=== PATIENT | male | born 1935 | race Hispanic/Latino ===

== ENCOUNTER 2018-03-04 22:51 | Inpatient (IN) | payer MEDICARE ==
[~2018-03-04] VITALS: Ht 157.5 cm; Wt 48.4 kg
[2018-03-04] MEDS ORDERED: SODIUM CHLORIDE 0.9% 500ML 500 ML IV ONE (23:34)
[2018-03-04] MEDS ORDERED: ONDANSETRON HCL 4 MG/2 ML VIAL ONE (23:34)
[2018-03-04 23:45] LABS: BASOPHILS % (AUTO) 0.4 % (0.0-5.0); EOSINOPHILS % (AUTO) 0.2 % (0.0-8.0); HEMATOCRIT 39.4 % (42-54); LYMPHOCYTES % (AUTO) 7.1 % (21.0-51.0); MEAN CORPUSCULAR HEMOGLOBIN 29.7 pg (27.0-33.0); MEAN CORPUSCULAR HGB CONC 34.9 g/dL (32.0-36.0); MEAN CORPUSCULAR VOLUME 85.1 fL (79-99); MONOCYTES % (AUTO) 24.9 % (3.0-13.0); NEUTROPHILS % (AUTO) 67.4 % (40.0-77.0); NUCLEATED RED BLOOD CELLS 0.1 % (0.0-0.19); PLATELET COUNT (AUTO) 179 K/uL (130-400); RED BLOOD CELL COUNT(AUTO) 4.63 MIL/uL (4.50-6.20); RED CELL DISTRIBUTION WIDTH 16.8 % (11.0-15.5); WHITE BLOOD COUNT (AUTO) 5.1 K/uL (4.8-10.8)
[2018-03-04 23:58] LABS: ALBUMIN 3.4 g/dL (3.5-5.0); BILIRUBIN,TOTAL 0.3 mg/dL (0.2-1.0); CREATININE 4.9 mg/dL (0.5-1.5); TOTAL PROTEIN, SERUM 7.1 g/dL (6.0-8.3)
[2018-03-05 00:05] LABS: POTASSIUM 2.7 mmol/L (3.5-5.1)
[2018-03-05] MEDS ORDERED: POTASSIUM BICARB/CIT AC 25 MEQ TABLET.EFF ONE (01:01)
[2018-03-05] MEDS ORDERED: SODIUM CHLORIDE 0.9% 1000ML 1,000 ML IV ONE ×3 (01:02→10:52)
[2018-03-05] MEDS ORDERED: ZOSYN 3.375GM+NS 50ML 50 ML IV ONE (01:02)
[2018-03-05 03:14] LABS: BILIRUBIN,URINE Negative (NEGATIVE); COLOR,URINE Dark Yellow (YELLOW); GLUCOSE, URINE (UA) Negative (NEGATIVE); KETONES,URINE Negative (NEGATIVE); LEUKOCYTE ESTERASE ,URINE Trace (NEGATIVE); NITRATE,URINE Negative (NEGATIVE); OCCULT BLOOD,URINE Trace (NEGATIVE); PROTEIN,URINE 300 (NEGATIVE)
[2018-03-05 03:18] LABS: APPEARANCE,URINE SLIGHTLY CLOUDY (CLEAR)
[2018-03-05 03:20] LABS: BACTERIA,URINE None Seen /HPF (None Seen); RBC,URINE None Seen /HPF (0-1); SQUAMOUS EPITHELIAL CELL,UR Rare /HPF (0-2); WBC,URINE 0-1 /HPF (0-1)
[2018-03-05] MEDS ORDERED: METRONIDAZOLE 500MG/100ML BAG 100 ML ONE (06:27)
[2018-03-05] MEDS ORDERED: LIDOCAINE HCL-MPF 1% 2ML VIAL IJ PRN (06:30)
[2018-03-05] MEDS ORDERED: LEVOFLOXACIN 500 MG/D5W 100 ML 100 ML IV SCH ×2 (06:30→11:00)
[2018-03-05] MEDS ORDERED: POTASSIUM CHLORIDE 10% ELIXIR 20 MEQ/15 ML UDCUP PO PRN (06:30)
[2018-03-05] MEDS ORDERED: CIPR-245 PO (06:56)
[2018-03-05] MEDS ORDERED: CLOP75TA32 PO (06:56)
[2018-03-05] MEDS ORDERED: METR500T4 PO (06:56)
[2018-03-05] MEDS ORDERED: AMLO10TA2 PO (06:56)
[2018-03-05] MEDS ORDERED: LOSA100T29 PO (06:56)
[2018-03-05] MEDS ORDERED: CILO100T PO (06:56)
[2018-03-05] MEDS ORDERED: PRAV20TA4 PO (06:56)
[2018-03-05] MEDS ORDERED: ENOXAPARIN SODIUM 30 MG/0.3 ML SQ ONE (07:46)
[2018-03-05] MEDS: METRONIDAZOLE 500MG/100ML BAG 100 ML IVPB SCH ×3 (08:00→20:05)
[2018-03-05] MEDS: PANTOPRAZOLE SODIUM 40 MG TABLET.DR PO SCH (09:00)
[2018-03-05] MEDS: ENOXAPARIN SODIUM 30 MG/0.3 ML SQ SCH (09:00)
[2018-03-05] MEDS ORDERED: LEVOFLOXACIN 500 MG/D5W 100 ML 100 ML IV ONE (10:53)
[2018-03-05 11:35] VITALS: BP 142/78
[2018-03-05] MEDS: SODIUM CHLORIDE 0.9% 1000ML 1,000 ML IV SCH ×3 (11:39→20:05)
[2018-03-05] MEDS: POTASSIUM CHLORIDE 20MEQ/100ML 100 ML IV PRN ×2 (12:03→17:22)
[2018-03-05] MEDS: POTASSIUM CHLORIDE 20 MEQ ERTAB PO PRN ×4 (12:03→21:56)
[2018-03-05 12:30] LABS: CHLORIDE,URINE RANDOM 23 mmol/L (110-250); POTASSIUM,URINE RANDOM 38 mmol/L (25-125); SODIUM,URINE RANDOM 16 mmol/l (40-220)
[2018-03-05 12:32] LABS: HEMATOCRIT 33.8 % (42-54); MEAN CORPUSCULAR HEMOGLOBIN 29.6 pg (27.0-33.0); MEAN CORPUSCULAR HGB CONC 35.1 g/dL (32.0-36.0); MEAN CORPUSCULAR VOLUME 84.4 fL (79-99); PLATELET COUNT (AUTO) 147 K/uL (130-400); RED BLOOD CELL COUNT(AUTO) 4.01 MIL/uL (4.50-6.20); RED CELL DISTRIBUTION WIDTH 16.9 % (11.0-15.5); WHITE BLOOD COUNT (AUTO) 3.4 K/uL (4.8-10.8)
[2018-03-05 13:02] LABS: POTASSIUM 2.3 mmol/L (3.5-5.1)
[2018-03-05] MEDS ORDERED: DIPHENOXYLATE HCL/ATROPINE 2.5/0.025 MG TAB PO SCH (15:00)
[2018-03-05 16:00] VITALS: BP 125/55
[2018-03-05] MEDS ORDERED: DIPHENOXYLATE HCL/ATROPINE 2.5/0.025 MG TAB PO PRN (16:00)
[2018-03-05 20:20] VITALS: BP 120/61
[2018-03-06 00:20] VITALS: BP 124/53
[2018-03-06] MEDS: METRONIDAZOLE 500MG/100ML BAG 100 ML IVPB SCH ×4 (01:41→19:36)
[2018-03-06] MEDS: SODIUM CHLORIDE 0.9% 1000ML 1,000 ML IV SCH ×3 (02:01→19:47)
[2018-03-06 04:20] VITALS: BP 137/65
[2018-03-06 04:44] LABS: POTASSIUM 3.2 mmol/L (3.5-5.1)
[2018-03-06] MEDS: POTASSIUM CHLORIDE 20 MEQ ERTAB PO PRN ×2 (07:11→16:51)
[2018-03-06 08:28] VITALS: BP 153/60
[2018-03-06] MEDS: PANTOPRAZOLE SODIUM 40 MG TABLET.DR PO SCH (09:19)
[2018-03-06] MEDS: ENOXAPARIN SODIUM 30 MG/0.3 ML SQ SCH (09:20)
[2018-03-06 11:40] VITALS: BP 136/61
[2018-03-06 16:24] VITALS: BP 129/58
[2018-03-06 20:32] VITALS: BP 155/66
[2018-03-07 00:32] VITALS: BP 171/71
[2018-03-07] MEDS: METRONIDAZOLE 500MG/100ML BAG 100 ML IVPB SCH ×3 (02:31→15:24)
[2018-03-07 04:32] VITALS: BP 146/54
[2018-03-07 04:54] LABS: BASOPHILS % (AUTO) 0.8 % (0.0-5.0); EOSINOPHILS % (AUTO) 4.6 % (0.0-8.0); HEMATOCRIT 28.2 % (42-54); LYMPHOCYTES % (AUTO) 20.7 % (21.0-51.0); MEAN CORPUSCULAR HGB CONC 35.6 g/dL (32.0-36.0); MEAN CORPUSCULAR VOLUME 84.3 fL (79-99); MONOCYTES % (AUTO) 25.4 % (3.0-13.0); NEUTROPHILS % (AUTO) 48.5 % (40.0-77.0); PLATELET COUNT (AUTO) 152 K/uL (130-400); RED BLOOD CELL COUNT(AUTO) 3.35 MIL/uL (4.50-6.20); RED CELL DISTRIBUTION WIDTH 17.1 % (11.0-15.5); WHITE BLOOD COUNT (AUTO) 3.3 K/uL (4.8-10.8)
[2018-03-07 05:01] LABS: CREATININE 1.9 mg/dL (0.5-1.5); MAGNESIUM 1.6 mg/dL (1.80-2.40); PHOSPHORUS 2.1 mg/dL (2.5-4.9); POTASSIUM 3.3 mmol/L (3.5-5.1)
[2018-03-07] MEDS: POTASSIUM CHLORIDE 20 MEQ ERTAB PO PRN (05:33)
[2018-03-07 08:21] VITALS: BP 154/97
[2018-03-07] MEDS ORDERED: LEVOFLOXACIN 250 MG/D5W 50ML 50 ML IVPB SCH (09:00)
[2018-03-07] MEDS: PANTOPRAZOLE SODIUM 40 MG TABLET.DR PO SCH (09:34)
[2018-03-07] MEDS: ENOXAPARIN SODIUM 30 MG/0.3 ML SQ SCH (09:39)
[2018-03-07] MEDS ORDERED: AMLODIPINE BESYLATE 5 MG TAB PO SCH (11:45)
[2018-03-07] MEDS ORDERED: MAGNESIUM 2GM PREMIX 50ML 50 ML IV SCH (12:00)
[2018-03-07 12:31] VITALS: BP 161/58
[2018-03-07 16:46] VITALS: BP 156/91
== END 2018-03-07 18:40 | disposition home or self-care (01) | DRG 683 ==
LOC: EDH 22:51 → OBSVTOIN 03-05 06:00 → EDHIP 03-05 06:00 → 4CH 03-05 11:01
PROVIDERS: ADMIT Internal Medicine; ATTEND Internal Medicine
DX: N17.9 Acute kidney failure, unspecified (principal); E87.2 Acidosis; E78.5 Hyperlipidemia, unspecified; E86.0 Dehydration; E86.1 Hypovolemia; E87.6 Hypokalemia; H54.61 Unqualified visual loss, right eye, normal vision left eye; I10 Essential (primary) hypertension; J44.9 Chronic obstructive pulmonary disease, unspecified; R91.1 Solitary pulmonary nodule; F17.210 Nicotine dependence, cigarettes, uncomplicated; R19.7 Diarrhea, unspecified; H54.40 Blindness, one eye, unspecified eye; A08.4 Viral intestinal infection, unspecified; Z86.718 Personal history of other venous thrombosis and embolism
CPT/HCPCS: 36415; 71045; 74176; 76770; 80048; 80051; 80053; 81001; 83605; 83690; 83735; 84100; 84484; 85025; 85027; 87040; 87324; 93005; 99291; J1650; J1956; J2405; J2543; J3475; J3480; J3490; J7030; J7040

== ENCOUNTER → 2018-09-27 | Outpatient (CLI) | payer MEDICARE ==
[~2018-09-27] MED LIST: AMLO10TA7 PO; CILO100T PO; CLOP75TA32 PO; PRAV20TA4 PO
== END | disposition home or self-care (01) ==
LOC: RAH 16:26
PROVIDERS: ATTEND Family Medicine
DX: M47.812 Spondylosis without myelopathy or radiculopathy, cervical region (principal)
CPT/HCPCS: 72040

== ENCOUNTER 2018-09-29 13:11 | Emergency (ER) | payer MEDICARE ==
[2018-09-29] MEDS ORDERED: KETOROLAC TROMETHAMINE 30MG/ML ONE (14:02)
[2018-09-29] MEDS ORDERED: HYDROCODONE/ACETAMINOPHEN 5/325 MG TAB ONE (14:02)
== END 2018-09-29 15:12 | disposition home or self-care (01) ==
LOC: EDH 13:11
DX: S13.8XXA Sprain of joints and ligaments of other parts of neck, initial encounter (principal); E78.5 Hyperlipidemia, unspecified; I10 Essential (primary) hypertension; Z86.718 Personal history of other venous thrombosis and embolism; X58.XXXA Exposure to other specified factors, initial encounter; Y93.89 Activity, other specified; Y92.89 Other specified places as the place of occurrence of the external cause; Y99.8 Other external cause status
CPT/HCPCS: 72040; 96372; 99283; J1885

== ENCOUNTER → 2018-10-11 | Outpatient (CLI) | payer MEDICARE | END | disposition home or self-care (01) | LOC: RAH 15:47 | PROVIDERS: ATTEND Family Medicine | DX: J98.11 Atelectasis (principal) | CPT/HCPCS: 71045 ==

== ENCOUNTER 2018-11-29 03:29 | Observation (INO) | payer MEDICARE ==
[~2018-11-29] VITALS: Ht 157.5 cm; Wt 51.6 kg
[2018-11-29 04:01] LABS: BASOPHILS % (AUTO) 0.6 % (0.0-5.0); EOSINOPHILS % (AUTO) 0.5 % (0.0-8.0); HEMATOCRIT 34.5 % (42-54); LYMPHOCYTES % (AUTO) 12.9 % (21.0-51.0); MEAN CORPUSCULAR HEMOGLOBIN 29.1 pg (27.0-33.0); MEAN CORPUSCULAR VOLUME 85.5 fL (79-99); MONOCYTES % (AUTO) 24.5 % (3.0-13.0); NEUTROPHILS % (AUTO) 61.5 % (40.0-77.0); PLATELET COUNT (AUTO) 145 K/uL (130-400); RED BLOOD CELL COUNT(AUTO) 4.03 MIL/uL (4.50-6.20); RED CELL DISTRIBUTION WIDTH 18.1 % (11.0-15.5); WHITE BLOOD COUNT (AUTO) 4.3 K/uL (4.8-10.8)
[2018-11-29] MEDS ORDERED: ACETAMINOPHEN EXTRA STRENGTH 500 MG TABLET ONE (04:04)
[2018-11-29 04:11] LABS: CREATININE 1.6 mg/dL (0.5-1.5)
[2018-11-29 04:15] LABS: ALBUMIN 2.8 g/dL (3.5-5.0); BILIRUBIN,TOTAL 0.3 mg/dL (0.2-1.0); TOTAL PROTEIN, SERUM 6.8 g/dL (6.0-8.3)
[2018-11-29 04:19] LABS: APPEARANCE,URINE Clear (CLEAR); BILIRUBIN,URINE Negative (NEGATIVE); COLOR,URINE Yellow (YELLOW); GLUCOSE, URINE (UA) Negative (NEGATIVE); KETONES,URINE Negative (NEGATIVE); LEUKOCYTE ESTERASE ,URINE Negative (NEGATIVE); NITRATE,URINE Negative (NEGATIVE); OCCULT BLOOD,URINE Moderate (NEGATIVE); PROTEIN,URINE 300 (NEGATIVE)
[2018-11-29 04:26] LABS: BACTERIA,URINE Rare /HPF (None Seen); SQUAMOUS EPITHELIAL CELL,UR 0-2 /HPF (0-2); WBC,URINE 0-1 /HPF (0-1)
[2018-11-29] MEDS ORDERED: OSELTAMIVIR PHOSPHATE 75 MG CAP ONE (05:05)
[2018-11-29 05:09] LABS: INR 0.98 (0.85-1.15); PARTIAL THROMBOPLASTIN TIME 34.3 SEC (26.3-35.5); PROTHROMBIN TIME 10.3 SEC (9.6-11.6)
[2018-11-29 05:22] LABS: CREATINE KINASE, TOTAL 112 U/L (21-232); MYOGLOBIN 107 ng/mL (10-92); TROPONIN I < 0.04 ng/mL (0.00-0.06)
[2018-11-29] MEDS ORDERED: IPRATROPIUM/ALBUTEROL SULFATE 3 ML SOLUTION IH ONE ×2 (06:32→10:25)
[2018-11-29] MEDS: METHYLPREDNISOLONE SOD SUCC 40MG/ML 1ML IVP SCH ×2 (07:30→22:35)
[2018-11-29] MEDS ORDERED: ACETAMINOPHEN 325 MG TAB PO PRN (07:30)
[2018-11-29] MEDS ORDERED: ONDANSETRON HCL 4 MG/2 ML VIAL IVP PRN (07:30)
[2018-11-29] MEDS ORDERED: HYDRALAZINE HCL 20 MG/ML VIAL IV PRN (07:30)
[2018-11-29] MEDS ORDERED: METHYLPREDNISOLONE SOD SUCC 125MG/2ML VIAL ONE (08:43)
[2018-11-29] MEDS: OSELTAMIVIR PHOSPHATE 75 MG CAP PO SCH ×2 (09:00→22:35)
[2018-11-29] MEDS: IPRATROPIUM/ALBUTEROL SULFATE 3 ML SOLUTION IH SCH ×3 (10:53→23:50)
[2018-11-29] MEDS ORDERED: HYDRALAZINE HCL 20 MG/ML VIAL ONE (16:48)
[2018-11-29] MEDS ORDERED: CLON.1 PO (20:35)
[2018-11-29] MEDS ORDERED: LOSA100T58 PO (20:35)
[2018-11-29] MEDS ORDERED: LEVO25TA54 PO (20:40)
[2018-11-29] MEDS ORDERED: LISI-617 PO (20:40)
[2018-11-29] MEDS ORDERED: CARV25TA PO (20:40)
[2018-11-29] MEDS ORDERED: CARB10DR2 OP (20:44)
[2018-11-29] MEDS ORDERED: FLUT1BLS3 IH (20:44)
[2018-11-29 21:16] VITALS: BP 152/67
[2018-11-29] MEDS: GUAIFENESIN SUGAR-FREE 100 MG/5 ML UDCUP PO PRN (23:00)
[2018-11-30] VITALS (7 sets, daily range): BP systolic 134–159; BP diastolic 50–76
[2018-11-30] MEDS: METHYLPREDNISOLONE SOD SUCC 40MG/ML 1ML IVP SCH ×2 (06:09→20:08)
[2018-11-30] MEDS: IPRATROPIUM/ALBUTEROL SULFATE 3 ML SOLUTION IH SCH ×4 (06:22→23:21)
--- NOTE | 2018-11-30 08:00 | NUR ---
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 PT IS ON ROOM AIR, FAMILY AT THE BEDSIDE, REVIEW FALL RISK AND CALL LIGHT, IN REACH
[2018-11-30] MEDS ORDERED: COMPOUND PO MISCELLANEOUS 1 EACH MISC MISC PRN (08:15)
[2018-11-30] MEDS ORDERED: ARTIFICAL TEARS SOL 15 ML OP PRN (08:15)
[2018-11-30] MEDS ORDERED: OSELTAMIVIR SUSP 15 MG/ML (6 CAPS/29ML) PO SCH ×2 (09:00)
[2018-11-30] MEDS: TRELEGY ELLIPTA IH SCH ×2 (09:00→20:12)
[2018-11-30] MEDS: LISINOPRIL 5 MG TABLET PO SCH (09:35)
[2018-11-30] MEDS: CLOPIDOGREL BISULFATE 75 MG TAB PO SCH (09:35)
[2018-11-30] MEDS: AMLODIPINE BESYLATE 5 MG TAB PO SCH (09:36)
[2018-11-30] MEDS: LOSARTAN 100 MG TABLET PO SCH (09:36)
[2018-11-30] MEDS: ATORVASTATIN CALCIUM 10 MG TABLET PO SCH (09:36)
[2018-11-30] MEDS: LEVOTHYROXINE 25 MCG TABLET PO SCH (09:37)
[2018-11-30] MEDS: CLONIDINE HCL 0.1 MG TABLET PO SCH ×2 (09:37→20:10)
[2018-11-30] MEDS: CARVEDILOL 25 MG TABLET PO SCH ×2 (09:38→20:09)
[2018-11-30] MEDS ORDERED: OSELTAMIVIR PHOSPHATE 75 MG CAP ONE (09:49)
[2018-11-30] MEDS: CEFTRIAXONE SODIUM 2 GM VIAL IVP SCH (09:51)
--- NOTE | 2018-11-30 16:13 | NUR ---
BLOOD SUGAR OF 264, AT 1130 . MONITOR . FOR THIS TIME IS A 139, PT HAS NO COVERAGE SLIDING SCALE ORD. WIIL DIRECT. MONITORING TO OF BLOOD SUGAR OUTCOME, ,
--- NOTE | 2018-11-30 17:37 | NUR ---
DESHAWN NOTES- IA MET W PT AND SPOUSE, MALAYSIAN SPKING, PT W POSS VISION/HEARING PROBLEMS PER PRIMARY RN. LIVES W [employer], NO DME, SON TO PROVIDE TRANSPORT HOME, [employer] 20+ HR WK, DCP HOME Addendum: 11/30/18 at 1740 by SHANNON RUTHERFORD RN CM Amended: Links added.
[2018-11-30] MEDS: GUAIFENESIN SUGAR-FREE 100 MG/5 ML UDCUP PO PRN (20:46)
--- NOTE | 2018-11-30 20:46 | NUR ---
MEDS COUGH MEDICATION ADMINISTERED, TOLERATED WELL. ENCOURAGED TO REST AND SLEEP. KEPT COMFORTABLE IN BED WITH HOB ELEVATED. CALL LIGHT WITHIN REACH. SPOUSE AT BEDSIDE. WILL MONITOR PT.
--- NOTE | 2018-12-01 02:00 | NUR ---
ROUNDS PT RESTING WELL, FAIRLY ASLEEP. NO DISTRESS NOTED. KEPT RESTED AND COMFORTABLE. CALL LIGHT WITHIN REACH. SPOUSE ASLEEP AT BEDSIDE. WILL MONITOR PT.
--- NOTE | 2018-12-01 03:39 | NUR ---
CASSY WALL NP FOR BENCHMARK, IN AND GAVE D/C ORDERS, PLEASE REFER TO CPOE. Addendum: 12/01/18 at 0655 by LORY DURHAM RN RN ERROR ENTRY.
[2018-12-01 03:52] VITALS: BP 114/56
[2018-12-01] MEDS: CEFTRIAXONE SODIUM 2 GM VIAL IVP SCH (05:40)
[2018-12-01] MEDS: METHYLPREDNISOLONE SOD SUCC 40MG/ML 1ML IVP SCH (05:40)
--- NOTE | 2018-12-01 05:40 | NUR ---
MEDS PT ALREADY AWAKE, NO CONCERNS VERBALIZED. NO DISTRESS NOTED. PIV NOTED TO BE LEAKING. DISCONTINUED PIV WITH CATHETER INTACT. RE-INSERTED G20 TO RFA, PT TOLERATED WELL. DUE MEDS ADMINISTERED. KEPT RESTED AND COMFORTABLE. FOR MORE CARE. Addendum: 12/01/18 at 0619 by LORY DURHAM RN RN Amended: Links added.
[2018-12-01] MEDS: IPRATROPIUM/ALBUTEROL SULFATE 3 ML SOLUTION IH SCH (06:23)
--- NOTE | 2018-12-01 06:39 | NUR ---
BILL RECAPITULATION CLERK MEL WALL NP FOR BENCHMARK, IN AND GAVE D/C ORDERS. PLEASE REFER TO CPOE.
[2018-12-01 08:00] VITALS: BP 145/59
[2018-12-01] MEDS: AMLODIPINE BESYLATE 5 MG TAB PO SCH (08:45)
[2018-12-01] MEDS: LOSARTAN 100 MG TABLET PO SCH (08:45)
[2018-12-01] MEDS: LEVOTHYROXINE 25 MCG TABLET PO SCH (08:45)
[2018-12-01] MEDS: CARVEDILOL 25 MG TABLET PO SCH (08:45)
[2018-12-01] MEDS: CLOPIDOGREL BISULFATE 75 MG TAB PO SCH (08:45)
[2018-12-01 08:46] VITALS: BP 145/59
[2018-12-01] MEDS: CLONIDINE HCL 0.1 MG TABLET PO SCH (08:46)
[2018-12-01] MEDS: LISINOPRIL 5 MG TABLET PO SCH (08:46)
[2018-12-01] MEDS: ATORVASTATIN CALCIUM 10 MG TABLET PO SCH (08:46)
--- NOTE | 2018-12-01 10:00 | NUR ---
DISCHARGE PATIENT GIVEN DISCHARGE AND INSTRUCTIONS, INCLUDING SIDE EFFECTS ON NEW PRESCRIBED MEDICATIONS AND FOLLOW UP APPOINTMENTS. PATIENT VERBALIZED UNDERSTANDING OF ALL EDUCATION GIVEN VIA TEACH BACK. NO QUESTIONS OR CONCERNS VOICED AT THIS TIME. IV DISCONTINUED, CATHETER INTACT. NO SIGNS OF DISTRESS NOTED UPON DISCHARGE. PATIENT LEFT VIA WHEELCHAIR WITH FAMILY AT SIDE TO PRIVATE CAR. ALL BELONGINGS TAKEN WITH. Addendum: 12/01/18 at 1023 by ELENITA MADISON RN RN Amended: Links added.
== END 2018-12-01 09:29 | disposition home or self-care (01) ==
LOC: EDH 03:29 → EDHIP 06:56 → 4CH 18:31
PROVIDERS: ADMIT Internal Medicine Critical Care Medicine; ATTEND Internal Medicine Critical Care Medicine
DX: J44.9 Chronic obstructive pulmonary disease, unspecified (principal); I10 Essential (primary) hypertension; J11.1 Influenza due to unidentified influenza virus with other respiratory manifestations; F17.210 Nicotine dependence, cigarettes, uncomplicated; Z79.899 Other long term (current) drug therapy; Z79.01 Long term (current) use of anticoagulants
CPT/HCPCS: 36415; 71045; 80053; 81001; 82550; 82948 ×5; 83605; 83874; 84484; 85025; 85610; 85730; 87040 ×2; 87088; 87804 ×2; 93005; 94640 ×9; 94664; 96374; 96375; 96376 ×2; 99284; A4218 ×2; G0378 ×51; J0360; J0696 ×2; J2920 ×5; J2930

== ENCOUNTER 2019-12-01 15:59 | Inpatient (IN) | payer MEDICARE ==
[~2019-12-01] VITALS: Ht 165.1 cm; Wt 47.9 kg
[~2019-12-01 15:59] MED LIST changes: -AMLO10TA7 PO; +AMLO5TAB4 PO; +ASPI-1012 PO; +CARB10DR2 OP; -CILO100T PO; +ERGO500014 PO; +FLUT1BLS3 IH; +FURO40TA7 PO; +IRON1CAP30 PO; +METO50 PO; +MINO2.5 PO; +OFLO5DRO OD; +PRED20B PO
[2019-12-01 17:11] LABS: APPEARANCE,URINE TURBID (CLEAR); BILIRUBIN,URINE NEGATIVE (NEGATIVE); COLOR,URINE YELLOW (YELLOW); GLUCOSE, URINE (UA) NEGATIVE (NEGATIVE); KETONES,URINE NEGATIVE (NEGATIVE); LEUKOCYTE ESTERASE ,URINE MODERATE (NEGATIVE); NITRATE,URINE NEGATIVE (NEGATIVE); OCCULT BLOOD,URINE MODERATE (NEGATIVE); PH,URINE 5.5 (5.0-8.0); PROTEIN,URINE 100 mg/dL (NEGATIVE); UROBILINOGEN,URINE 0.2 mg/dL (0.2-1.0)
[2019-12-01 17:17] LABS: BACTERIA,URINE Few /HPF (None Seen); RBC,URINE None Seen /HPF (0-1); SQUAMOUS EPITHELIAL CELL,UR None Seen /HPF (0-2); WBC,URINE Full Field /HPF (0-1)
[2019-12-01 17:22] LABS: BASOPHILS % (AUTO) 0.6 % (0.0-5.0); EOSINOPHILS % (AUTO) 0.7 % (0.0-8.0); HEMATOCRIT 27.7 % (42-54); MEAN CORPUSCULAR HEMOGLOBIN 27.5 pg (27.0-33.0); MEAN CORPUSCULAR HGB CONC 32.9 g/dL (32.0-36.0); MEAN CORPUSCULAR VOLUME 83.7 fL (79-99); MONOCYTES % (AUTO) 13.9 % (3.0-13.0); NEUTROPHILS % (AUTO) 74.8 % (40.0-77.0); PLATELET COUNT (AUTO) 214 K/uL (130-400); RED BLOOD CELL COUNT(AUTO) 3.31 MIL/uL (4.50-6.20); RED CELL DISTRIBUTION WIDTH 15.3 % (11.0-15.5); WHITE BLOOD COUNT (AUTO) 9.6 K/uL (4.8-10.8)
[2019-12-01 17:33] LABS: INR 1.1 (0.85-1.15); PARTIAL THROMBOPLASTIN TIME 31.5 SEC (26.3-35.5); PROTHROMBIN TIME 11.8 SEC (9.6-11.6)
[2019-12-01 17:36] LABS: ALBUMIN 2.5 g/dL (3.5-5.0); BILIRUBIN,TOTAL 0.3 mg/dL (0.2-1.0); CREATININE 7.6 mg/dL (0.5-1.5); POTASSIUM 4.7 mmol/L (3.5-5.1); TOTAL PROTEIN, SERUM 7.3 g/dL (6.0-8.3)
[2019-12-01] MEDS ORDERED: SODIUM CHLORIDE 0.9% 500ML 500 ML IV ONE (18:01)
[2019-12-01] MEDS ORDERED: ONDANSETRON 4 MG TABLET PO PRN (19:30)
[2019-12-01] MEDS: SODIUM CHLORIDE 0.9% 1000ML 1,000 ML IV SCH (19:30)
[2019-12-01] MEDS ORDERED: ACETAMINOPHEN 325 MG TAB PO PRN (19:30)
[2019-12-01] MEDS: CEFTRIAXONE SODIUM 1 GM IVP SCH (20:00)
[2019-12-01] MEDS ORDERED: CEFTRIAXONE SODIUM 1 GM ONE (20:04)
[2019-12-01] MEDS ORDERED: SODIUM CHLORIDE 0.9% 50 ML IV ONE (20:05)
[2019-12-01] MEDS ORDERED: SODIUM CHLORIDE 0.9% 1000ML 1,000 ML IV ONE (20:05)
[2019-12-01 21:13] VITALS: BP 136/45
[2019-12-02] VITALS (7 sets, daily range): BP systolic 120–151; BP diastolic 45–74
[2019-12-02] MEDS ORDERED: LEVO25TA54 PO (00:31)
[2019-12-02] MEDS: SODIUM CHLORIDE 0.9% 1000ML 1,000 ML IV SCH (05:30)
[2019-12-02] MEDS ORDERED: SODIUM BICARBONATE 650 MG TAB PO PRN (08:45)
[2019-12-02 09:50] LABS: CREATINE KINASE, TOTAL 67 U/L (21-232); MYOGLOBIN 211 ng/mL (10-92); TROPONIN I < 0.04 ng/mL (0.00-0.06)
[2019-12-02] MEDS: PHENAZOPYRIDINE HCL 200 MG TABLET PO SCH ×2 (11:36→16:59)
[2019-12-02] MEDS ORDERED: PHENAZOPYRIDINE HCL 200 MG TABLET ONE (11:36)
[2019-12-02] MEDS: TAMSULOSIN HCL 0.4 MG CAP.ER.24H PO SCH (11:36)
[2019-12-02] MEDS: TRAMADOL HCL 50 MG TABLET PO PRN (13:36)
--- NOTE | 2019-12-02 15:17 | NUR ---
780 BLADDER SCAN VOLUME.. INSERTED 16 FR ERIC PER STERILE TECHNIQUE .. 900 OUTPUT OF BLOOD MILKY OUTPUT TO ERIC BAG .. Addendum: 12/02/19 at 1731 by EZRA JOSEPH RN RN Amended: Links added.
--- NOTE | 2019-12-02 16:20 | NUR ---
INITIAL met w/ daughter danny nunes [phone] at bedside of patient-patient sleeping/comfortable Danny supplied history, Lives with spouse Savannah, who is currently hospitalized. pt uses no dme, but has available; home safe & accessible, provider 20+ hrs/wk; daughter drives, patient has poor vision. Daughter says that pt has been told that his kidneys were "fine" but he has been sleeping a lot in the last few weeks cm to follow Addendum: 12/02/19 at 1629 by SHANNON RUTHERFORD RN CM Amended: Links added.
[2019-12-02] MEDS: CEFTRIAXONE SODIUM 1 GM IVP SCH (20:54)
[2019-12-03] MEDS: TRAMADOL HCL 50 MG TABLET PO PRN ×2 (01:31→15:51)
[2019-12-03 04:00] VITALS: BP 148/57
[2019-12-03] MEDS: SODIUM CHLORIDE 0.9% 1000ML 1,000 ML IV SCH ×3 (05:30→21:33)
[2019-12-03 06:32] LABS: HEMATOCRIT 24.6 % (42-54); MEAN CORPUSCULAR HEMOGLOBIN 27.6 pg (27.0-33.0); MEAN CORPUSCULAR HGB CONC 32.9 g/dL (32.0-36.0); PLATELET COUNT (AUTO) 191 K/uL (130-400); RED BLOOD CELL COUNT(AUTO) 2.93 MIL/uL (4.50-6.20); RED CELL DISTRIBUTION WIDTH 15.4 % (11.0-15.5); WHITE BLOOD COUNT (AUTO) 7.8 K/uL (4.8-10.8)
[2019-12-03 06:56] LABS: CREATININE 5.7 mg/dL (0.5-1.5); POTASSIUM 3.9 mmol/L (3.5-5.1)
[2019-12-03 07:12] LABS: % IRON SATURATION 12.4 % (30-44)
[2019-12-03 07:30] VITALS: BP 121/73
[2019-12-03 08:03] LABS: BAND NEUTROPHILS % (MANUAL) 6 % (0-2); EOSINOPHILS % (MANUAL) 1 % (1-6); LYMPHOCYTES % (MANUAL) 12 % (22-44); MAN.DIFF COMMENT-IMPRESSION MANUAL DIFFERENTIAL; MONOCYTES % (MANUAL) 11 % (2-9); PLATELET MORPHOLOGY COMMENT ADEQUATE; SEGMENTED NEUTROPHILS % 70 % (40-70)
[2019-12-03] MEDS: PHENAZOPYRIDINE HCL 200 MG TABLET PO SCH ×3 (09:29→20:13)
[2019-12-03] MEDS: TAMSULOSIN HCL 0.4 MG CAP.ER.24H PO SCH (09:29)
[2019-12-03 11:00] VITALS: BP_SYST 135; BP_SYST 157; BP_DIAS 66; BP_DIAS 80
[2019-12-03] MEDS ORDERED: SENNOSIDES 8.6 MG TABLET PO PRN (13:30)
[2019-12-03] MEDS ORDERED: EPOETIN ALFA 10,000 UNIT/ML VIAL SQ SCH (13:30)
[2019-12-03] MEDS ORDERED: FLUCONAZOLE 100 MG TAB PO SCH (13:30)
[2019-12-03] MEDS ORDERED: COMPOUND PO MISCELLANEOUS 1 EACH MISC MISC PRN (13:45)
[2019-12-03] MEDS: IRON SUCROSE COMPLEX 100 MG in SODIUM CHLORIDE 0.9% 50 ML IV SCH (14:19)
[2019-12-03] MEDS ORDERED: ONDANSETRON HCL 4 MG/2 ML VIAL IVP PRN (15:45)
[2019-12-03 16:00] VITALS: BP 148/90
[2019-12-03 19:30] VITALS: BP 158/70
[2019-12-03] MEDS: CEFTRIAXONE SODIUM 1 GM IVP SCH (20:13)
[2019-12-04] VITALS (7 sets, daily range): BP systolic 130–152; BP diastolic 55–79
[2019-12-04 05:29] LABS: CREATININE 4.4 mg/dL (0.5-1.5); POTASSIUM 3.8 mmol/L (3.5-5.1)
[2019-12-04 05:32] LABS: HEMATOCRIT 28.2 % (42-54); MEAN CORPUSCULAR HEMOGLOBIN 27.2 pg (27.0-33.0); MEAN CORPUSCULAR HGB CONC 31.9 g/dL (32.0-36.0); MEAN CORPUSCULAR VOLUME 85.2 fL (79-99); PLATELET COUNT (AUTO) 170 K/uL (130-400); RED BLOOD CELL COUNT(AUTO) 3.31 MIL/uL (4.50-6.20); RED CELL DISTRIBUTION WIDTH 15.7 % (11.0-15.5); WHITE BLOOD COUNT (AUTO) 6.4 K/uL (4.8-10.8)
[2019-12-04 06:05] LABS: BAND NEUTROPHILS % (MANUAL) 11 % (0-2); EOSINOPHILS % (MANUAL) 4 % (1-6); LYMPHOCYTES % (MANUAL) 12 % (22-44); MAN.DIFF COMMENT-IMPRESSION MANUAL DIFFERENTIAL; MONOCYTES % (MANUAL) 9 % (2-9); PLATELET MORPHOLOGY COMMENT ADEQUATE; SEGMENTED NEUTROPHILS % 64 % (40-70)
[2019-12-04] MEDS: SODIUM CHLORIDE 0.9% 1000ML 1,000 ML IV SCH ×2 (06:37→21:57)
[2019-12-04] MEDS: PHENAZOPYRIDINE HCL 200 MG TABLET PO SCH (08:20)
[2019-12-04] MEDS: IRON SUCROSE COMPLEX 100 MG in SODIUM CHLORIDE 0.9% 50 ML IV SCH (08:20)
[2019-12-04] MEDS: TAMSULOSIN HCL 0.4 MG CAP.ER.24H PO SCH (08:20)
[2019-12-04] MEDS: FLUCONAZOLE 100 MG TAB PO SCH (08:20)
[2019-12-04] MEDS: TRAMADOL HCL 50 MG TABLET PO PRN (15:45)
[2019-12-04] MEDS ORDERED: FERS325 PO (17:27)
--- NOTE | 2019-12-04 20:00 | NUR ---
BLADDER TRAINING INITIATED AT THIS TIME , CLAMPED ,EXPLAINED TO PT AND FAMILY PROCESS OF BLADDER TRAINING, INSTRUCTED PT AND FAMILYTO INFORM NURSE WHEN HAVING BLADDER FULLNESS AND DISCOMFORT . Addendum: 12/05/19 at 0258 by NINA MANN RN RN Amended: Links added.
--- NOTE | 2019-12-04 20:32 | NUR ---
CALLED TO PHARMACIST AND SPOKE WITH KAMAR REGARDING PLACING HOME MEDS FOR PATIENT ON [facility] AND WARNING INTERACTION DISPLAYS ON SCREEN WITH FLUCONAZOLE. INFORMED HIM PATIENT HAS BEEN USING THIS MED FOR A WHILE .PER KAMAR TO GO AHEAD AND PROCEED TO ADD IT AND HE WILL TAKE A LOOK AT IT .
[2019-12-04] MEDS ORDERED: ATORVASTATIN CALCIUM 10 MG TABLET PO SCH (21:00)
[2019-12-04] MEDS: MINOXIDIL 2.5 MG TAB PO SCH (21:00)
[2019-12-04] MEDS ORDERED: NON-FORMULARY MEDICATION 1 EACH (Fluticasone/Umeclidin/Vilanter (Trelegy Ellipta 100-62.5- IH SCH (21:00)
[2019-12-04] MEDS: METOPROLOL TARTRATE 50 MG TAB PO SCH (21:56)
[2019-12-04] MEDS: IPRATROPIUM/ALBUTEROL SULFATE 3 ML SOLUTION IH SCH (23:30)
--- NOTE | 2019-12-04 23:45 | NUR ---
BLADDER TRAINING PT UNCOMFORTABLE ,BLADDER PRESSURE REPORTED, UNCLAMPED ,DRAINING WITHOUT PROBLEM Addendum: 12/05/19 at 0300 by NINA MANN RN RN Amended: Links added.
--- NOTE | 2019-12-05 00:10 | NUR ---
PIV OUT ON ROUNDS ,NOTED PIV OUT ,CATH INTACT,COMPLETELY OUT , SCANT AMOUNT BLOOD ON FA ,PRESSURE APPLIED , GOOD HEMOSTASIS.BLADDER TRAINING CONTINUED ,CLAMPED AT THIS TIME POST EMPTYING DB 825ML TOTAL Addendum: 12/05/19 at 0254 by NINA MANN RN RN Amended: Links added.
--- NOTE | 2019-12-05 01:10 | NUR ---
BLADDER TRAINING ERIC CLAMPED ,POST 400ML URINE OUTPUT,REINSTRUCTED PT TO CALL WHEN HAVING BLADDER FULNESS Addendum: 12/05/19 at 0528 by NINA MANN RN RN Amended: Links added.
[2019-12-05] MEDS: SODIUM CHLORIDE 0.9% 1000ML 1,000 ML IV SCH ×2 (02:33→13:30)
[2019-12-05 03:54] VITALS: BP 152/63
[2019-12-05] MEDS: IPRATROPIUM/ALBUTEROL SULFATE 3 ML SOLUTION IH SCH ×2 (05:15→11:21)
[2019-12-05 05:25] LABS: HEMATOCRIT 24.7 % (42-54); MEAN CORPUSCULAR HEMOGLOBIN 27.7 pg (27.0-33.0); MEAN CORPUSCULAR HGB CONC 32.8 g/dL (32.0-36.0); MEAN CORPUSCULAR VOLUME 84.6 fL (79-99); PLATELET COUNT (AUTO) 161 K/uL (130-400); RED BLOOD CELL COUNT(AUTO) 2.92 MIL/uL (4.50-6.20); RED CELL DISTRIBUTION WIDTH 15.7 % (11.0-15.5); WHITE BLOOD COUNT (AUTO) 8.1 K/uL (4.8-10.8)
--- NOTE | 2019-12-05 05:29 | NUR ---
BLADDER TRAINING PT WITH FEELING DISCOMFORT , ERIC UNCLAMPED , DRAINING 350 ML URINE , IMMEDIATE RELIEF FELT Addendum: 12/05/19 at 0531 by NINA MANN RN RN Amended: Links added.
[2019-12-05 05:48] LABS: CREATININE 3.8 mg/dL (0.5-1.5); POTASSIUM 3.7 mmol/L (3.5-5.1)
[2019-12-05] MEDS ORDERED: BUDESONIDE 0.5 MG/2 ML INH IH SCH (06:00)
[2019-12-05 06:26] LABS: BAND NEUTROPHILS % (MANUAL) 19 % (0-2); BASOPHILS % (MANUAL) 1 % (0-2); EOSINOPHILS % (MANUAL) 7 % (1-6); LYMPHOCYTES % (MANUAL) 10 % (22-44); MAN.DIFF COMMENT-IMPRESSION MANUAL DIFFERENTIAL; MONOCYTES % (MANUAL) 5 % (2-9); PLATELET MORPHOLOGY COMMENT ADEQUATE; SEGMENTED NEUTROPHILS % 58 % (40-70)
[2019-12-05 08:00] VITALS: BP 116/36
[2019-12-05] MEDS ORDERED: AMLODIPINE BESYLATE 5 MG TAB PO SCH (09:00)
[2019-12-05] MEDS ORDERED: CLOPIDOGREL BISULFATE 75 MG TAB PO SCH (09:00)
[2019-12-05] MEDS ORDERED: ASPIRIN 325 MG TABLET PO SCH (09:00)
[2019-12-05] MEDS ORDERED: FLUC100T8 PO (09:22)
[2019-12-05] MEDS ORDERED: TAMS-1 PO (09:22)
[2019-12-05] MEDS: IRON SUCROSE COMPLEX 100 MG in SODIUM CHLORIDE 0.9% 50 ML IV SCH (10:21)
[2019-12-05] MEDS: FLUCONAZOLE 100 MG TAB PO SCH (10:21)
[2019-12-05] MEDS: TAMSULOSIN HCL 0.4 MG CAP.ER.24H PO SCH (10:22)
[2019-12-05] MEDS: MINOXIDIL 2.5 MG TAB PO SCH (10:22)
[2019-12-05] MEDS: METOPROLOL TARTRATE 50 MG TAB PO SCH (10:22)
[2019-12-05 11:21] VITALS: BP 142/78
[2019-12-05 15:55] VITALS: BP 154/70
[2019-12-05] MEDS ORDERED: MORPHINE SULFATE 2 MG/ML 1ML SYG IVP ONE (16:20)
--- NOTE | 2019-12-05 16:43 | NUR ---
Discharge instructions reviewed with daughter and patient. Educated daughter on strict hand hygiene, pederson catheter care, and how to document output for pederson catheter.Prescribed medications reviewed, and follow up appointments noted. Daughter verbalized understanding. Prescriptions sent electronically to [facility], confirmed transmission of prescriptions. Patient escorted to emergency entrance via wheelchair.
[2019-12-06] MEDS ORDERED: GLYCERIN OP PRN (09:00)
[2019-12-06] MEDS ORDERED: CARBOXYMETHYLCELLULOS OP PRN (09:00)
== END 2019-12-05 17:20 | disposition home or self-care (01) | DRG 690 ==
LOC: EDH 15:59 → OBSVTOIN 18:38 → EDHIP 18:38 → 4CH 20:37
PROVIDERS: ADMIT Internal Medicine Pulmonary Disease; ATTEND Internal Medicine Pulmonary Disease
DX: N13.6 Pyonephrosis (principal); E44.0 Moderate protein-calorie malnutrition; Z68.1 Body mass index [BMI] 19.9 or less, adult; R64 Cachexia; B37.49 Other urogenital candidiasis; E87.2 Acidosis; E11.22 Type 2 diabetes mellitus with diabetic chronic kidney disease; R62.7 Adult failure to thrive; N17.9 Acute kidney failure, unspecified; F17.200 Nicotine dependence, unspecified, uncomplicated; J44.9 Chronic obstructive pulmonary disease, unspecified; R68.89 Other general symptoms and signs; E78.00 Pure hypercholesterolemia, unspecified; E78.5 Hyperlipidemia, unspecified; H54.61 Unqualified visual loss, right eye, normal vision left eye; I25.10 Atherosclerotic heart disease of native coronary artery without angina pectoris; R53.81 Other malaise; I12.9 Hypertensive chronic kidney disease with stage 1 through stage 4 chronic kidney disease, or unspecified chronic kidney disease; N18.9 Chronic kidney disease, unspecified; Z79.82 Long term (current) use of aspirin; Z86.718 Personal history of other venous thrombosis and embolism; Z79.02 Long term (current) use of antithrombotics/antiplatelets; I16.0 Hypertensive urgency; N41.9 Inflammatory disease of prostate, unspecified
CPT/HCPCS: 36415; 71045; 76770; 80048; 80053; 81001; 82550; 83540; 83550; 83874; 84100; 84484; 85025; 85610; 85730; 87088; 87804; 93005; 94640; 94664; 97039; 99291; G0378; J0696; J0885; J1756; J2405; J7030; J7040

== ENCOUNTER → 2020-01-24 | Outpatient (CLI) | payer MEDICARE ==
[~2020-01-24] MED LIST changes: +FERS325 PO; +FLUC100T8 PO; -FURO40TA7 PO; -IRON1CAP30 PO; +LEVO25TA54 PO; -OFLO5DRO OD; -PRED20B PO; +TAMS-1 PO
== END | disposition home or self-care (01) ==
LOC: RAH 13:24
PROVIDERS: ATTEND Urology
DX: N28.1 Cyst of kidney, acquired (principal); N28.9 Disorder of kidney and ureter, unspecified; N13.30 Unspecified hydronephrosis
CPT/HCPCS: 76770

== ENCOUNTER 2022-05-02 21:45 | Emergency (ER) | payer OTHER, MEDICARE ==
[~2022-05-02] VITALS: Ht 160 cm; Wt 45.4 kg
[~2022-05-02 21:45] MED LIST changes: +ALBUHFA IH; -AMLO5TAB4 PO; -ASPI-1012 PO; +BENZ-70 PO; -CARB10DR2 OP; -CLOP75TA32 PO; +DOXY100C5 PO; -ERGO500014 PO; -FERS325 PO; +FINA5TAB41 PO; -FLUC100T8 PO; -FLUT1BLS3 IH; +FURO20TA4 PO; +HYDR-3421 PO; +METO-391 PO; -METO50 PO; -MINO2.5 PO; -TAMS-1 PO; +VITAD50000 PO
[2022-05-02 22:40] LABS: APPEARANCE,URINE CLEAR (CLEAR); BILIRUBIN,URINE SMALL (NEGATIVE); COLOR,URINE YELLOW (YELLOW); GLUCOSE, URINE (UA) NEGATIVE (NEGATIVE); KETONES,URINE NEGATIVE (NEGATIVE); LEUKOCYTE ESTERASE ,URINE MODERATE (NEGATIVE); NITRATE,URINE POSITIVE (NEGATIVE); OCCULT BLOOD,URINE LARGE (NEGATIVE); PH,URINE 5.5 (5.0-8.0); PROTEIN,URINE >=300 mg/dL (NEGATIVE)
[2022-05-02 22:58] LABS: BACTERIA,URINE Moderate /HPF (None Seen); RBC,URINE TNTC /HPF (0-1); WBC,URINE 51-100 /HPF (0-1)
[2022-05-02] MEDS: CEFTRIAXONE 1G VIAL IVP ONE (23:00)
[2022-05-02] MEDS ORDERED: CEFD300C3 PO (23:37)
[2022-05-02] MEDS ORDERED: OXYB5TAB15 PO (23:37)
[2022-05-02 23:46] VITALS: BP 157/45
[2022-05-02] MEDS: LIDOCAINE HCL 2% JELLY 5 ML TP SCH (23:48)
== END 2022-05-02 23:56 | disposition home or self-care (01) ==
LOC: EDH 21:45
DX: N32.89 Other specified disorders of bladder (principal); N39.0 Urinary tract infection, site not specified; J44.9 Chronic obstructive pulmonary disease, unspecified; I10 Essential (primary) hypertension; Z79.899 Other long term (current) drug therapy
CPT/HCPCS: 99284; 96374; 87077 ×2; 87088; 87186 ×2; 81001; 51702; J0696

== ENCOUNTER 2022-06-17 09:42 | Emergency (ER) | payer MEDICARE ==
[~2022-06-17] VITALS: Ht 162.6 cm; Wt 49.9 kg
[~2022-06-17 09:42] MED LIST changes: +CEFD300C3 PO; +OXYB5TAB15 PO
[2022-06-17] MEDS ORDERED: LIDOCAINE HCL 2% JELLY 5 ML ONE (10:11)
[2022-06-17 11:16] LABS: APPEARANCE,URINE CLOUDY (CLEAR); BILIRUBIN,URINE NEGATIVE (NEGATIVE); COLOR,URINE YELLOW (YELLOW); GLUCOSE, URINE (UA) NEGATIVE (NEGATIVE); KETONES,URINE NEGATIVE (NEGATIVE); LEUKOCYTE ESTERASE ,URINE LARGE Leu/uL (NEGATIVE); NITRATE,URINE POSITIVE (NEGATIVE); OCCULT BLOOD,URINE TRACE-INTACT (NEGATIVE); PH,URINE 7.5 (5.0-8.0); PROTEIN,URINE 100 mg/dL (NEGATIVE); UROBILINOGEN,URINE 0.2 mg/dL (0.2-1.0)
[2022-06-17 11:17] LABS: BACTERIA,URINE Moderate /HPF (None Seen); RBC,URINE 0-1 /HPF (0-1)
[2022-06-17 11:18] LABS: SQUAMOUS EPITHELIAL CELL,UR 0-2 /HPF (0-2)
[2022-06-17 11:20] VITALS: BP 151/41
[2022-06-17] MEDS ORDERED: NAPR-1196 PO (11:33)
[2022-06-17] MEDS ORDERED: CIPR-279 PO (11:33)
== END 2022-06-17 11:50 | disposition home or self-care (01) ==
LOC: EDH 09:42
DX: S42.444A Nondisplaced fracture (avulsion) of medial epicondyle of right humerus, initial encounter for closed fracture (principal); T83.091A Other mechanical complication of indwelling urethral catheter, initial encounter; N39.0 Urinary tract infection, site not specified; J44.9 Chronic obstructive pulmonary disease, unspecified; I10 Essential (primary) hypertension; Z79.899 Other long term (current) drug therapy; Z98.890 Other specified postprocedural states; X58.XXXA Exposure to other specified factors, initial encounter; Y93.89 Activity, other specified; Y92.89 Other specified places as the place of occurrence of the external cause; Y99.8 Other external cause status
CPT/HCPCS: 29105; 51702; 73070; 81001; 87077; 87088; 87186

== ENCOUNTER 2022-12-15 14:15 | Emergency (ER) | payer MEDICARE ==
[~2022-12-15] VITALS: Ht 154.9 cm; Wt 44.0 kg
[~2022-12-15 14:15] MED LIST changes: +AMOX-426 PO; +AZIT500T4 PO; +BENZ-226 PO; -BENZ-70 PO; -CEFD300C3 PO; -DOXY100C5 PO; +PRED20TA3 PO; +SODI650T PO
[2022-12-15] MEDS ORDERED: CLONIDINE HCL 0.1 MG TABLET PO ONE (15:30)
[2022-12-15 16:28] LABS: BASOPHILS % (AUTO) 0.6 % (0.0-5.0); EOSINOPHILS % (AUTO) 1.1 % (0.0-8.0); HEMATOCRIT 21.5 % (42-54); MEAN CORPUSCULAR HEMOGLOBIN 30.5 pg (27.0-33.0); MEAN CORPUSCULAR HGB CONC 32.1 g/dL (32.0-36.0); MEAN CORPUSCULAR VOLUME 95.1 fL (79-99); MONOCYTES % (AUTO) 13.1 % (3.0-13.0); NEUTROPHILS % (AUTO) 73.6 % (40.0-77.0); PLATELET COUNT (AUTO) 98 K/uL (130-400); RED BLOOD CELL COUNT(AUTO) 2.26 MIL/uL (4.50-6.20); RED CELL DISTRIBUTION WIDTH 19.8 % (11.0-15.5); WHITE BLOOD COUNT (AUTO) 5.4 K/uL (4.8-10.8)
[2022-12-15 16:33] LABS: APPEARANCE,URINE CLOUDY (CLEAR); BILIRUBIN,URINE NEGATIVE (NEGATIVE); COLOR,URINE YELLOW (YELLOW); GLUCOSE, URINE (UA) TRACE mg/dL (NEGATIVE); KETONES,URINE NEGATIVE (NEGATIVE); LEUKOCYTE ESTERASE ,URINE 500 Leu/uL (NEGATIVE); NITRATE,URINE NEGATIVE (NEGATIVE); OCCULT BLOOD,URINE SMALL (NEGATIVE); PROTEIN,URINE 300 mg/dL (NEGATIVE); UROBILINOGEN,URINE 0.2 mg/dL (0.2-1.0)
[2022-12-15 16:40] LABS: BACTERIA,URINE MOD /HPF (None Seen); MUCUS,URINE RARE LPF (None Seen); OTHER CASTS, URINE 2 /LPF (None Seen); SQUAMOUS EPITHELIAL CELL,UR RARE /HPF (0-2); WBC,URINE >100 /HPF (0-1); YEAST,URINE BUDDING FEW /HPF (None Seen)
[2022-12-15 16:40] LABS: CREATININE 3.5 mg/dL (0.5-1.5); POTASSIUM 4.6 mmol/L (3.5-5.1)
[2022-12-15 16:50] LABS: TOTAL PROTEIN, SERUM 6.5 g/dL (6.0-8.3)
[2022-12-15] MEDS ORDERED: CEFTRIAXONE 1G VIAL IVP ONE (17:00)
[2022-12-15] MEDS ORDERED: 0.9% NACL 500ML IV.SOLN 500 ML IV ONE (17:30)
[2022-12-15 22:02] VITALS: BP 165/75
== END 2022-12-15 22:03 | disposition home or self-care (01) ==
LOC: EDH 14:15
DX: D64.9 Anemia, unspecified (principal); D69.6 Thrombocytopenia, unspecified; R04.0 Epistaxis; J44.9 Chronic obstructive pulmonary disease, unspecified; I50.9 Heart failure, unspecified; Z79.2 Long term (current) use of antibiotics; Z79.899 Other long term (current) drug therapy
CPT/HCPCS: 99285; 36430; 96374; 84484; 80053; 85025; 86850; 86900; 86901; 86923; 87077; 87088; 87186; 81001; 36415; 93005; P9016; J7040; J0696

== ENCOUNTER 2022-12-18 03:14 | Inpatient (IN) | payer MEDICARE ==
[2022-12-18] MEDS ORDERED: IPRATROPIUM/ALBUTEROL SULFATE 3 ML SOLUTION IH ONE (04:00)
[2022-12-18] MEDS ORDERED: SOLU-MEDROL 125MG VIAL IVP ONE (04:00)
[2022-12-18 04:07] LABS: ABG HCO3 14.2 mmol/L (21.0-28.0); ABG OXYGEN SATURATION 73.2 % (95.0-99.0); ABG PCO2 25 mmHg (35-48)
[2022-12-18] MEDS ORDERED: FUROSEMIDE 40MG VIAL IV ONE (04:30)
[2022-12-18] MEDS ORDERED: ZOSYN 3.375GM +NS 50ML IVPB ONE (04:30)
[2022-12-18 05:30] LABS: BASOPHILS % (AUTO) 0.9 % (0.0-5.0); EOSINOPHILS % (AUTO) 0.4 % (0.0-8.0); HEMATOCRIT 27.1 % (42-54); MEAN CORPUSCULAR HEMOGLOBIN 30.5 pg (27.0-33.0); MEAN CORPUSCULAR HGB CONC 32.1 g/dL (32.0-36.0); MEAN CORPUSCULAR VOLUME 95.1 fL (79-99); MONOCYTES % (AUTO) 12.2 % (3.0-13.0); NEUTROPHILS % (AUTO) 76.7 % (40.0-77.0); PLATELET COUNT (AUTO) 128 K/uL (130-400); RED BLOOD CELL COUNT(AUTO) 2.85 MIL/uL (4.50-6.20); RED CELL DISTRIBUTION WIDTH 19.6 % (11.0-15.5); WHITE BLOOD COUNT (AUTO) 7.8 K/uL (4.8-10.8)
[2022-12-18] MEDS ORDERED: FUROSEMIDE 20MG VIAL ONE (05:36)
[2022-12-18 05:38] LABS: CREATININE 4.1 mg/dL (0.5-1.5); POTASSIUM 5.4 mmol/L (3.5-5.1)
[2022-12-18 05:42] LABS: ALBUMIN 2.9 g/dL (3.5-5.0); MAGNESIUM 2.4 mg/dL (1.80-2.40); TOTAL PROTEIN, SERUM 6.7 g/dL (6.0-8.3)
[2022-12-18 06:15] LABS: B-TYPE NATRIURETIC PEPTIDE 3490 pg/mL (0-100)
[2022-12-18] MEDS ORDERED: ACETAMINOPHEN 325 MG TAB PO PRN (06:30)
[2022-12-18] MEDS ORDERED: HYDRALAZINE 20MG/ML VIAL IV PRN (06:30)
[2022-12-18] MEDS ORDERED: IPRATROPIUM 0.5 MG/2.5 ML INH IH PRN (06:30)
[2022-12-18] MEDS ORDERED: ONDANSETRON 4MG INJ IVP PRN (06:30)
[2022-12-18] MEDS ORDERED: ALBUTEROL 0.083% 2.5 MG/3 ML INH IH PRN (06:30)
[2022-12-18] MEDS ORDERED: CLOP75TA32 PO (08:13)
[2022-12-18] MEDS ORDERED: IRON1CAP30 PO (08:13)
[2022-12-18] MEDS ORDERED: AMLO-258 PO (08:13)
[2022-12-18] MEDS ORDERED: VITAD50000 PO (08:13)
[2022-12-18] MEDS ORDERED: EMPA25TA PO (08:13)
[2022-12-18] MEDS ORDERED: FURO20TA4 PO (08:13)
[2022-12-18] MEDS ORDERED: PRAV20TA4 PO (08:13)
[2022-12-18] MEDS ORDERED: METO-391 PO (08:13)
[2022-12-18] MEDS ORDERED: LEVO50CA4 PO (08:13)
[2022-12-18] MEDS ORDERED: KAYEXALATE 15GM/60ML PO ONE (08:30)
[2022-12-18] MEDS ORDERED: FUROSEMIDE 40MG VIAL IV SCH (09:00)
[2022-12-18 11:08] LABS: APPEARANCE,URINE CLEAR (CLEAR); BILIRUBIN,URINE NEGATIVE (NEGATIVE); COLOR,URINE LIGHT-YELLOW (YELLOW); GLUCOSE, URINE (UA) 200 mg/dL (NEGATIVE); KETONES,URINE NEGATIVE (NEGATIVE); LEUKOCYTE ESTERASE ,URINE 75 Leu/uL (NEGATIVE); NITRATE,URINE NEGATIVE (NEGATIVE); PH,URINE 5.5 (5.0-8.0); PROTEIN,URINE 100 mg/dL (NEGATIVE); UROBILINOGEN,URINE 0.2 mg/dL (0.2-1.0)
[2022-12-18 11:11] LABS: BACTERIA,URINE RARE /HPF (None Seen); MUCUS,URINE RARE LPF (None Seen)
[2022-12-18 11:20] VITALS: BP 149/73
[2022-12-18] MEDS: IPRATROPIUM/ALBUTEROL SULFATE 3 ML SOLUTION IH SCH ×3 (11:36→23:49)
[2022-12-18] MEDS ORDERED: 0.9%NACL 50ML IV SCH (13:00)
[2022-12-18] MEDS: ZOSYN 3.375GM +NS 50ML IVPB SCH ×2 (13:30→19:51)
[2022-12-18 16:22] VITALS: BP 154/72
[2022-12-18] MEDS: HEPARIN 5,000 UNIT VIAL SQ SCH (17:53)
[2022-12-18] MEDS ORDERED: FUROSEMIDE 40MG VIAL ONE (19:19)
[2022-12-18] MEDS: FUROSEMIDE 40MG VIAL IV SCH (19:51)
[2022-12-18 19:53] VITALS: BP 115/60
[2022-12-18 23:29] VITALS: BP 140/68
[2022-12-19] MEDS: ZOSYN 3.375GM +NS 50ML IVPB SCH ×3 (02:59→20:04)
[2022-12-19] MEDS: HEPARIN 5,000 UNIT VIAL SQ SCH ×2 (03:00→17:23)
[2022-12-19] MEDS: LACTULOSE 20 GM/30 ML UDCUP PO PRN (03:00)
[2022-12-19 03:49] VITALS: BP 141/48
[2022-12-19 04:51] LABS: BASOPHILS % (AUTO) 0.4 % (0.0-5.0); EOSINOPHILS % (AUTO) 2.1 % (0.0-8.0); HEMATOCRIT 23.8 % (42-54); LYMPHOCYTES % (AUTO) 8.9 % (21.0-51.0); MEAN CORPUSCULAR HEMOGLOBIN 30.3 pg (27.0-33.0); MEAN CORPUSCULAR HGB CONC 32.4 g/dL (32.0-36.0); MEAN CORPUSCULAR VOLUME 93.7 fL (79-99); MONOCYTES % (AUTO) 15.9 % (3.0-13.0); PLATELET COUNT (AUTO) 133 K/uL (130-400); RED BLOOD CELL COUNT(AUTO) 2.54 MIL/uL (4.50-6.20); RED CELL DISTRIBUTION WIDTH 19.7 % (11.0-15.5); WHITE BLOOD COUNT (AUTO) 5.6 K/uL (4.8-10.8)
[2022-12-19 05:05] LABS: MAGNESIUM 2.5 mg/dL (1.80-2.40); PHOSPHORUS 6.4 mg/dL (2.5-4.9); POTASSIUM 4.4 mmol/L (3.5-5.1)
[2022-12-19 05:11] LABS: % IRON SATURATION 21.1 % (30-44)
[2022-12-19] MEDS: IPRATROPIUM/ALBUTEROL SULFATE 3 ML SOLUTION IH SCH ×4 (06:49→23:37)
[2022-12-19 08:00] VITALS: BP 111/68
[2022-12-19] MEDS: PANTOPRAZOLE 40 MG TAB DR PO SCH (08:30)
[2022-12-19] MEDS: FUROSEMIDE 40MG VIAL IV SCH ×3 (08:30→20:04)
[2022-12-19] MEDS ORDERED: COMPOUND IV MISC 1 EACH IVSOLN MISC PRN (09:30)
[2022-12-19] MEDS ORDERED: IRON SUCROSE COMPLEX 300 MG in 0.9% NACL 250ML 250 ML IV ONE (10:00)
[2022-12-19 10:26] VITALS: BP 134/52
[2022-12-19 12:00] VITALS: BP 123/54
[2022-12-19 16:00] VITALS: BP 169/89
[2022-12-19 20:31] VITALS: BP 159/68
[2022-12-20] VITALS (7 sets, daily range): BP systolic 127–149; BP diastolic 47–77
[2022-12-20] MEDS: ZOSYN 3.375GM +NS 50ML IVPB SCH ×3 (04:08→20:28)
[2022-12-20] MEDS: HEPARIN 5,000 UNIT VIAL SQ SCH ×2 (04:08→16:56)
[2022-12-20 05:13] LABS: HEMATOCRIT 22.8 % (42-54); MEAN CORPUSCULAR HEMOGLOBIN 30.7 pg (27.0-33.0); MEAN CORPUSCULAR HGB CONC 32.5 g/dL (32.0-36.0); MEAN CORPUSCULAR VOLUME 94.6 fL (79-99); RED BLOOD CELL COUNT(AUTO) 2.41 MIL/uL (4.50-6.20); RED CELL DISTRIBUTION WIDTH 19.6 % (11.0-15.5); WHITE BLOOD COUNT (AUTO) 4.4 K/uL (4.8-10.8)
[2022-12-20 05:33] LABS: CREATININE 5.7 mg/dL (0.5-1.5); POTASSIUM 3.9 mmol/L (3.5-5.1)
[2022-12-20] MEDS: IPRATROPIUM/ALBUTEROL SULFATE 3 ML SOLUTION IH SCH ×3 (06:33→19:20)
[2022-12-20] MEDS: PANTOPRAZOLE 40 MG TAB DR PO SCH (09:21)
[2022-12-20] MEDS: EPOETIN ALFA-EPBX (NON-ESRD) 10,000 UNIT/ML VIAL SQ SCH (09:21)
[2022-12-20] MEDS: FUROSEMIDE 40MG VIAL IV SCH ×2 (09:21→20:29)
[2022-12-20 17:24] LABS: APPEARANCE,URINE CLEAR (CLEAR); BILIRUBIN,URINE NEGATIVE (NEGATIVE); COLOR,URINE COLORLESS (YELLOW); GLUCOSE, URINE (UA) 70 mg/dL (NEGATIVE); KETONES,URINE NEGATIVE (NEGATIVE); LEUKOCYTE ESTERASE ,URINE NEGATIVE Leu/uL (NEGATIVE); NITRATE,URINE NEGATIVE (NEGATIVE); OCCULT BLOOD,URINE NEGATIVE (NEGATIVE); PH,URINE 5.5 (5.0-8.0); PROTEIN,URINE 70 mg/dL (NEGATIVE); UROBILINOGEN,URINE 0.2 mg/dL (0.2-1.0)
[2022-12-20 17:27] LABS: BACTERIA,URINE RARE /HPF (None Seen); MUCUS,URINE RARE LPF (None Seen); SQUAMOUS EPITHELIAL CELL,UR RARE /HPF (0-2)
[2022-12-20] MEDS: METOPROLOL SUCCINATE 50 MG TAB.SR.24H PO SCH (20:28)
[2022-12-21] MEDS: IPRATROPIUM/ALBUTEROL SULFATE 3 ML SOLUTION IH SCH ×5 (00:13→23:55)
[2022-12-21 03:41] VITALS: BP 140/49
[2022-12-21] MEDS: ZOSYN 3.375GM +NS 50ML IVPB SCH (04:08)
[2022-12-21] MEDS: HEPARIN 5,000 UNIT VIAL SQ SCH ×2 (04:08→15:06)
[2022-12-21 05:25] LABS: HEMATOCRIT 22.1 % (42-54); MEAN CORPUSCULAR HEMOGLOBIN 30.4 pg (27.0-33.0); MEAN CORPUSCULAR HGB CONC 31.7 g/dL (32.0-36.0); MEAN CORPUSCULAR VOLUME 96.1 fL (79-99); PLATELET COUNT (AUTO) 129 K/uL (130-400); RED CELL DISTRIBUTION WIDTH 19.9 % (11.0-15.5); WHITE BLOOD COUNT (AUTO) 4.2 K/uL (4.8-10.8)
[2022-12-21 05:33] LABS: LYMPHOCYTES % (MANUAL) 8 % (22-44); MAN.DIFF COMMENT-IMPRESSION MANUAL DIFFERENTIAL; MONOCYTES % (MANUAL) 20 % (2-9); PLATELET MORPHOLOGY COMMENT ADEQUATE; SEGMENTED NEUTROPHILS % 72 % (40-70)
[2022-12-21 05:37] LABS: ALBUMIN 2.5 g/dL (3.5-5.0); CREATININE 6.2 mg/dL (0.5-1.5); MAGNESIUM 2.2 mg/dL (1.80-2.40); PHOSPHORUS 6.9 mg/dL (2.5-4.9); POTASSIUM 4.2 mmol/L (3.5-5.1); TOTAL PROTEIN, SERUM 5.7 g/dL (6.0-8.3); URIC ACID 10.1 mg/dL (2.6-7.2)
[2022-12-21] MEDS ORDERED: SOD FERRIC GLUC COMPLEX/SUC 125 MG in 0.9%NACL 100ML 100 ML IV SCH (07:30)
[2022-12-21 08:00] VITALS: BP 164/68
[2022-12-21] MEDS: CEFEPIME HCL 1 GM VIAL IVPB SCH ×2 (08:57→19:20)
[2022-12-21] MEDS: PANTOPRAZOLE 40 MG TAB DR PO SCH (08:57)
[2022-12-21] MEDS: AMLODIPINE 5 MG TAB PO SCH (08:57)
[2022-12-21] MEDS: ATORVASTATIN 10 MG TABLET PO SCH (08:58)
[2022-12-21] MEDS: [UNRECOGNIZED DRUG - OTHER] PO SCH (08:58)
[2022-12-21] MEDS: PS CMP PO SCH (08:58)
[2022-12-21] MEDS: EMPAGLIFLOZIN 25MG TABLET PO SCH (08:58)
[2022-12-21] MEDS: METOPROLOL SUCCINATE 50 MG TAB.SR.24H PO SCH ×2 (08:58→20:33)
[2022-12-21] MEDS: IRON FUM PO SCH (08:58)
[2022-12-21] MEDS: VIT C PO SCH (08:58)
[2022-12-21] MEDS: LACTULOSE 20 GM/30 ML UDCUP PO PRN (08:59)
[2022-12-21] MEDS: LEVOTHYROXINE 50 MCG TABLET PO SCH (08:59)
[2022-12-21] MEDS: CLOPIDOGREL 75MG TAB PO SCH (09:00)
[2022-12-21 11:58] VITALS: BP 156/67
[2022-12-21 16:00] VITALS: BP 146/55
[2022-12-21 19:54] VITALS: BP 149/72
[2022-12-21 23:30] VITALS: BP 154/43
[2022-12-22 04:00] VITALS: BP 138/50
[2022-12-22] MEDS: HEPARIN 5,000 UNIT VIAL SQ SCH (04:57)
[2022-12-22] MEDS: LEVOTHYROXINE 50 MCG TABLET PO SCH (05:04)
[2022-12-22 05:43] LABS: POTASSIUM 3.8 mmol/L (3.5-5.1)
[2022-12-22] MEDS: CEFEPIME HCL 1 GM VIAL IVPB SCH (06:13)
[2022-12-22] MEDS: IPRATROPIUM/ALBUTEROL SULFATE 3 ML SOLUTION IH SCH ×2 (06:53→11:26)
[2022-12-22 08:00] VITALS: BP 174/53
[2022-12-22] MEDS: VIT C PO SCH (08:58)
[2022-12-22] MEDS: [UNRECOGNIZED DRUG - OTHER] PO SCH (08:58)
[2022-12-22] MEDS: IRON FUM PO SCH (08:58)
[2022-12-22] MEDS: PS CMP PO SCH (08:58)
[2022-12-22] MEDS: CLOPIDOGREL 75MG TAB PO SCH (08:59)
[2022-12-22] MEDS: EPOETIN ALFA-EPBX (NON-ESRD) 10,000 UNIT/ML VIAL SQ SCH (08:59)
[2022-12-22] MEDS: ATORVASTATIN 10 MG TABLET PO SCH (09:00)
[2022-12-22] MEDS: EMPAGLIFLOZIN 25MG TABLET PO SCH (09:00)
[2022-12-22] MEDS: PANTOPRAZOLE 40 MG TAB DR PO SCH (09:00)
[2022-12-22] MEDS: METOPROLOL SUCCINATE 50 MG TAB.SR.24H PO SCH (09:00)
[2022-12-22] MEDS: AMLODIPINE 5 MG TAB PO SCH (09:00)
[2022-12-22 11:44] VITALS: BP_SYST 152; BP_SYST 153; BP_DIAS 52; BP_DIAS 93
[2022-12-27] MEDS ORDERED: **HM**Cholecalciferol (Vitamin D3) 50,000 UNITS PO SCH (09:00)
== END 2022-12-22 14:25 | disposition home or self-care (01) | DRG 177 ==
LOC: EDH 03:14 → OBSVTOIN 06:26 → EDHIP 06:26 → 4CH 11:22
PROVIDERS: ADMIT Internal Medicine Critical Care Medicine; ATTEND Internal Medicine Critical Care Medicine
DX: J69.0 Pneumonitis due to inhalation of food and vomit (principal); I50.33 Acute on chronic diastolic (congestive) heart failure; J96.01 Acute respiratory failure with hypoxia; N18.4 Chronic kidney disease, stage 4 (severe); N13.8 Other obstructive and reflux uropathy; I13.0 Hypertensive heart and chronic kidney disease with heart failure and stage 1 through stage 4 chronic kidney disease, or unspecified chronic kidney disease; N17.9 Acute kidney failure, unspecified; N39.0 Urinary tract infection, site not specified; Z20.822 Contact with and (suspected) exposure to COVID-19; J43.9 Emphysema, unspecified; F03.90 Unspecified dementia, unspecified severity, without behavioral disturbance, psychotic disturbance, mood disturbance, and anxiety; D63.8 Anemia in other chronic diseases classified elsewhere; E03.9 Hypothyroidism, unspecified; E11.22 Type 2 diabetes mellitus with diabetic chronic kidney disease; E78.5 Hyperlipidemia, unspecified; N31.9 Neuromuscular dysfunction of bladder, unspecified; N40.1 Benign prostatic hyperplasia with lower urinary tract symptoms; Z85.819 Personal history of malignant neoplasm of unspecified site of lip, oral cavity, and pharynx; Z87.440 Personal history of urinary (tract) infections; Z99.2 Dependence on renal dialysis
CPT/HCPCS: 36415; 36600; 71045; 71250; 76770; 80048; 80053; 81001; 82803; 83540; 83550; 83605; 83735; 83880; 84100; 84145; 84484; 84550; 85014; 85018; 85025; 85027; 87040; 87088; 87635; 87804; 92610; 93005; 93306; 93356; 94640; 94664; 94667; 94668; 97039; 99291; G0378; J0360; J0692; J1644; J1756; J1940; J2543; J2930; J7050

== ENCOUNTER 2023-05-28 16:04 | Emergency (ER) | payer MEDICARE ==
[~2023-05-28] VITALS: Ht 160 cm; Wt 44.9 kg
[~2023-05-28 16:04] MED LIST changes: -ALBUHFA IH; +AMLO-258 PO; -AMOX-426 PO; -AZIT500T4 PO; -BENZ-226 PO; +CLOP75TA32 PO; +EMPA25TA PO; -FINA5TAB41 PO; -HYDR-3421 PO; +IRON1CAP30 PO; -LEVO25TA54 PO; +LEVO50CA4 PO; -OXYB5TAB15 PO; -PRED20TA3 PO; -SODI650T PO
[2023-05-28 16:41] LABS: HEMATOCRIT 24.4 % (42-54); MEAN CORPUSCULAR HEMOGLOBIN 32.8 pg (27.0-33.0); MEAN CORPUSCULAR HGB CONC 32.4 g/dL (32.0-36.0); MEAN CORPUSCULAR VOLUME 101.2 fL (79-99); PLATELET COUNT (AUTO) 58 K/uL (130-400); RED BLOOD CELL COUNT(AUTO) 2.41 MIL/uL (4.50-6.20); RED CELL DISTRIBUTION WIDTH 19.1 % (11.0-15.5); WHITE BLOOD COUNT (AUTO) 11.3 K/uL (4.8-10.8)
[2023-05-28 16:50] LABS: CREATININE 4.5 mg/dL (0.5-1.5); POTASSIUM 5.9 mmol/L (3.5-5.1)
[2023-05-28 16:55] LABS: ALBUMIN 2.4 g/dL (3.5-5.0); BILIRUBIN,TOTAL 0.4 mg/dL (0.2-1.0); TOTAL PROTEIN, SERUM 5.6 g/dL (6.0-8.3)
[2023-05-28 17:08] LABS: APPEARANCE,URINE TURBID (CLEAR); BILIRUBIN,URINE NEGATIVE (NEGATIVE); COLOR,URINE LIGHT-ORANGE (YELLOW); GLUCOSE, URINE (UA) NEGATIVE (NEGATIVE); KETONES,URINE NEGATIVE (NEGATIVE); LEUKOCYTE ESTERASE ,URINE 500 Leu/uL (NEGATIVE); NITRATE,URINE NEGATIVE (NEGATIVE); OCCULT BLOOD,URINE LARGE (NEGATIVE); PROTEIN,URINE 200 mg/dL (NEGATIVE); UROBILINOGEN,URINE 0.2 mg/dL (0.2-1.0)
[2023-05-28 17:17] LABS: PLATELET MORPHOLOGY COMMENT DECREASED
[2023-05-28 17:26] LABS: ADD UA MICROSCOPIC YES
[2023-05-28 17:32] LABS: BACTERIA,URINE MOD /HPF (None Seen); MUCUS,URINE RARE LPF (None Seen); RBC,URINE TNTC /HPF (0-1); TRANSITIONAL EPI CELLS,URINE RARE /HPF (None Seen); WBC CLUMP MANY /HPF (0-1); WBC,URINE TNTC /HPF (0-1)
[2023-05-28] MEDS ORDERED: CEPH500B PO (18:45)
[2023-05-28 19:00] VITALS: BP 144/42; PULSE 64; RESP 16; O2SAT 96
[2023-05-28] MEDS ORDERED: NIFEDIPINE 10 MG CAP PO ONE (19:00)
== END 2023-05-28 19:03 | disposition home or self-care (01) ==
LOC: EDH 16:04
DX: T83.9XXA Unspecified complication of genitourinary prosthetic device, implant and graft, initial encounter (principal); I12.0 Hypertensive chronic kidney disease with stage 5 chronic kidney disease or end stage renal disease; N18.6 End stage renal disease; I11.0 Hypertensive heart disease with heart failure; I50.9 Heart failure, unspecified; J44.9 Chronic obstructive pulmonary disease, unspecified; Z79.02 Long term (current) use of antithrombotics/antiplatelets; Z79.84 Long term (current) use of oral hypoglycemic drugs; Z79.890 Hormone replacement therapy; Z79.899 Other long term (current) drug therapy; Y69 Unspecified misadventure during surgical and medical care; Y92.89 Other specified places as the place of occurrence of the external cause
CPT/HCPCS: 36415; 74176; 80053; 81001; 85027; 87077; 87088; 87186

== ENCOUNTER 2023-06-03 08:31 | Emergency (ER) | payer MEDICARE ==
[~2023-06-03] VITALS: Ht 154.9 cm; Wt 36.3 kg
[~2023-06-03 08:31] MED LIST changes: +CEPH500B PO
[2023-06-03 08:37] VITALS: BP 186/87; PULSE 60; RESP 16; O2SAT 96
[2023-06-03] MEDS: TAMSULOSIN HCL 0.4 MG CAP.ER.24H PO ONE (11:26)
[2023-06-03] MEDS: ACETAMINOPHEN WITH CODEINE 1 TAB TAB PO ONE (11:27)
[2023-06-03 11:44] LABS: APPEARANCE,URINE CLOUDY (CLEAR); BILIRUBIN,URINE NEGATIVE (NEGATIVE); COLOR,URINE YELLOW (YELLOW); GLUCOSE, URINE (UA) TRACE mg/dL (NEGATIVE); KETONES,URINE 5 mg/dL (NEGATIVE); LEUKOCYTE ESTERASE ,URINE 500 Leu/uL (NEGATIVE); NITRATE,URINE NEGATIVE (NEGATIVE); OCCULT BLOOD,URINE LARGE (NEGATIVE); PH,URINE 5.5 (5.0-8.0); PROTEIN,URINE 100 mg/dL (NEGATIVE)
[2023-06-03 12:25] LABS: ADD UA MICROSCOPIC YES
[2023-06-03 12:34] LABS: BACTERIA,URINE MANY /HPF (None Seen); MUCUS,URINE RARE LPF (None Seen); RBC,URINE 26-50 /HPF (0-1); SQUAMOUS EPITHELIAL CELL,UR RARE /HPF (0-2); WBC CLUMP MANY /HPF (0-1); WBC,URINE TNTC /HPF (0-1); YEAST,URINE BUDDING RARE /HPF (None Seen)
[2023-06-03] MEDS ORDERED: TAMS-1 PO (12:45)
[2023-06-03] MEDS ORDERED: CEPH500B PO (12:45)
== END 2023-06-03 13:13 | disposition home or self-care (01) ==
LOC: EDH 08:31
DX: T83.091A Other mechanical complication of indwelling urethral catheter, initial encounter (principal); N39.0 Urinary tract infection, site not specified; R33.9 Retention of urine, unspecified; J44.9 Chronic obstructive pulmonary disease, unspecified; I11.0 Hypertensive heart disease with heart failure; I50.9 Heart failure, unspecified; Z79.02 Long term (current) use of antithrombotics/antiplatelets; Z79.84 Long term (current) use of oral hypoglycemic drugs; Z79.890 Hormone replacement therapy; Z79.899 Other long term (current) drug therapy; Y82.9 Unspecified medical devices associated with adverse incidents; Y92.89 Other specified places as the place of occurrence of the external cause
CPT/HCPCS: 36415; 51702; 81001; 84153; 87077; 87088; 87186